=== PATIENT | male | born 1965 | race Caucasian/White ===

== ENCOUNTER 2016-05-26 16:11 | Emergency (ER) | payer MEDICAID ==
[~2016-05-26] VITALS: Ht 160 cm; Wt 79.0 kg
[2016-05-26 16:20] VITALS: Ht 160 cm; Wt 79.0 kg
--- NOTE | 2016-05-26 21:07 | ERA ---
ER Documentation Chief Complaint Date/Time DATE: 05/26/16 TIME: 21:06 Chief Complaint ABDOMINAL PAIN X 4 MONTHS WITH BRIGHT RED BLOOD IN STOOL TODAY HPI The patient is a 50-year-old male, presenting to the ER because of chronic left sided abdominal pain for more than 4 months, worse for 1 day. He saw a few drops of blood when he moves his bowel today. He went to the pharmacy and was advised by the pharmacist to take MiraLAX. He denies similar symptoms previously, fever, chills, neck pain, chest pain, nausea, vomiting, dysuria, diarrhea, constipation. He does not smoke or drink Past medical/surgical history: None ROS All systems reviewed and are negative except as per history of present illness. Physical Exam Vitals Vital Signs Date Time Temp Pulse Resp B/P Pulse Ox O2 Delivery O2 Flow Rate FiO2 05/26/16 16:20 98.2 91 18 119/79 99 Physical Exam Const: No acute distress. Head: Atraumatic. Eyes: Normal Conjunctiva. ENT: Normal External Ears, Nose and Mouth. Neck: Full range of motion. No meningismus. Resp: Clear to auscultation bilaterally. Cardio: Regular tachycardic Abd: Soft, non distended, normal bowel sounds, vague minimal left- sided abdominal discomfort, no right lower quadrant, right upper quadrant, epigastric, CVA tenderness Skin: No petechiae or rashes. Back: No midline or flank tenderness. Ext: No cyanosis, or edema. Neur: Awake and alert. No focal deficit Psych: Normal Mood and Affect. Result Diagram: 05/26/16214905/26/162149 Results 24 hrs Laboratory Tests Test 05/26/16 21:50 05/26/16 22:53 White Blood Count 11.810^3/ul Red Blood Count 5.3010^6/ul Hemoglobin 14.9g/dl Hematocrit 45.4% Mean Corpuscular Volume 85.7fl Mean Corpuscular Hemoglobin 28.1pg Mean Corpuscular Hemoglobin Concent 32.8g/dl Red Cell Distribution Width 14.7% Platelet Count 41348^3/UL Mean Platelet Volume 9.8fl Neutrophils % 56.4% Lymphocytes % 34.9% Monocytes % 7.0% Eosinophils % 1.0% Basophils % 0.3% Nucleated Red Blood Cells % 0.0/100WBC Neutrophils # 6.710^3/ul Lymphocytes # 4.110^3/ul Monocytes # 0.810^3/ul Eosinophils # 0.110^3/ul Basophils # 0.010^3/ul Nucleated Red Blood Cells # 0.010^3/ul Sodium Level 136mmol/L Potassium Level 4.3mmol/L Chloride Level 106mmol/L Carbon Dioxide Level 25mmol/L Anion Gap 9 Blood Urea Nitrogen 23mg/dl Creatinine 0.72mg/dl Glucose Level 91mg/dl Calcium Level 9.3mg/dl Total Bilirubin 0.1mg/dl Direct Bilirubin 0.00mg/dl Indirect Bilirubin 0.1mg/dl Aspartate Amino Transf (AST/SGOT) 16IU/L Alanine Aminotransferase (ALT/SGPT) 35IU/L Alkaline Phosphatase 67IU/L Total Protein 7.0g/dl Albumin 4.1g/dl Globulin 2.90g/dl Albumin/Globulin Ratio 1.41 Lipase 175U/L Bedside Urine pH (LAB) 5.5 Bedside Urine Protein (LAB) Trace Bedside Urine Glucose (UA) Negative Bedside Urine Ketones (LAB) Trace Bedside Urine Blood Negative Bedside Urine Nitrite (LAB) Negative Bedside Urine Leukocyte Esterase (L Negative Current Medications Medications (Trade) Dose Ordered Sig/Nayana Route PRN Reason Start Time Stop Time Status Last Admin Dose Admin Ketorolac Tromethamine (Toradol) 30 mg ONCE STAT IV 05/26/16 22:03 05/26/16 22:25 DC 05/26/16 22:28 Procedures/MDM MEDICAL MAKING DECISION: The patient is a 50-year-old male, presenting to the ER because of acute hematochezia and vague abdominal pain. He is stable for outpatient follow-up. He was treated with Toradol 30 IV for pain with good response. The differential diagnoses considered include but are not limited to hemorrhoids, fissures , gastritis, peptic ulcer disease, esophageal varices, Brooke-Bah tear, carcinoma, polyp, hemorrhoid, fissure, diverticulosis, angiodysplasia. Departure Condition: Good Comments I discussed the findings with the patient. I advised the patient to follow-up with the primary physician in about 1-2 days for referral to gastroenterology for immediate colonoscopy, sooner if needed and return if any concern. LUÍS MAYS MD May 26, 2016 21:06
[2016-05-26] MEDS ORDERED: KETOROLAC 30 MG INJ IV STA (22:03)
[2016-05-26 22:09] LABS: ADD SCAN DIFF NO
[2016-05-26 22:13] LABS: BASOPHILS % 0.3 % (0.0-2.0); EOSINOPHILS # 0.1 10^3/ul (0.0-0.5); HEMATOCRIT 45.4 % (42.0-52.0); HEMOGLOBIN 14.9 g/dl (14.0-18.0); LYMPHOCYTES # 4.1 10^3/ul (0.8-2.9); LYMPHOCYTES % 34.9 % (15.0-51.0); MEAN CORPUSCULAR HEMOGLOBIN 28.1 pg (29.0-33.0); MEAN CORPUSCULAR HGB CONC 32.8 g/dl (32.0-37.0); MEAN CORPUSCULAR VOLUME 85.7 fl (82.0-101.0); MEAN PLATELET VOLUME 9.8 fl (7.4-10.4); MONOCYTE # 0.8 10^3/ul (0.3-0.9); NEUTROPHIL # 6.7 10^3/ul (1.6-7.5); NEUTROPHILS % 56.4 % (39.0-77.0); PLATELET COUNT 277 10^3/UL (140-415); RED CELL DISTRIBUTION WIDTH 14.7 % (11.5-14.5); WHITE BLOOD COUNT 11.8 10^3/ul (4.8-10.8)
[2016-05-26 22:23] LABS: ALBUMIN 4.1 g/dl (3.3-4.9)
[2016-05-26 22:24] LABS: POTASSIUM 4.3 mmol/L (3.5-5.1)
[2016-05-26 22:26] LABS: ALBUMIN/GLOBULIN RATIO 1.41; BILIRUBIN,INDIRECT 0.1 mg/dl (0-1.1); BILIRUBIN,TOTAL 0.1 mg/dl (0.2-1.3); CREATININE 0.72 mg/dl (0.61-1.24)
[2016-05-26 22:27] LABS: CALCIUM 9.3 mg/dl (8.4-10.2)
[2016-05-26 22:54] LABS: URINE BLOOD (Dip) POC Negative (NEGATIVE)
[2016-05-26 23:55] VITALS: BP 118/74; PULSE 78; RESP 18; TEMP 98.3
[2016-05-27] MEDS ORDERED: HYDR-906 PO (00:01)
== END 2016-05-27 00:04 | disposition home or self-care (01) ==
LOC: E/R 16:11
DX: R10.9 Unspecified abdominal pain (principal)
CPT/HCPCS: 80053; 81003; 83690; 85025; J1885; 36415; 96374